=== PATIENT | male | born 1970 | race Native Hawaiian/Other Pacific Islander ===

== ENCOUNTER 2018-10-10 23:16 | Emergency (ER) | payer BC ==
[~2018-10-10] VITALS: Ht 177.8 cm; Wt 93.0 kg
[2018-10-10 23:36] VITALS: TEMP 98.7
[2018-10-11 00:30] LABS: PLATELET COUNT 226 K/uL (142-355)
[2018-10-11 00:35] LABS: POTASSIUM 3.5 mmol/L (3.6-5.2)
[2018-10-11 01:25] VITALS: BP 150/99
== END 2018-10-11 01:25 | disposition home or self-care (01) ==
LOC: ED 23:16
PROVIDERS: Internal Medicine
DX: I10 Essential (primary) hypertension (principal); E87.6 Hypokalemia
CPT/HCPCS: 36415; 80053; 81000; 85027; 93005; 99283

== ENCOUNTER 2022-04-03 14:46 | Outpatient (CLI) | payer BC | END 2022-04-03 20:02 | disposition home or self-care (01) | LOC: MRI 14:46 | PROVIDERS: ATTEND Orthopaedic Surgery | DX: M25.552 Pain in left hip (principal); M16.12 Unilateral primary osteoarthritis, left hip; M24.152 Other articular cartilage disorders, left hip ==

== ENCOUNTER 2022-06-15 19:15 | Emergency (ER) | payer BC ==
[~2022-06-15] VITALS: Ht 177.8 cm; Wt 97.5 kg
[2022-06-15 19:20] VITALS: TEMP 99.2
[2022-06-15 19:45] LABS: PLATELET COUNT 245 K/uL (142-355)
[2022-06-15 20:03] LABS: POTASSIUM 3.6 mmol/L (3.6-5.2)
[2022-06-15 22:52] VITALS: BP 143/92
== END 2022-06-15 22:50 | disposition short-term general hospital (02) ==
LOC: ED 19:15
PROVIDERS: Emergency Medicine Emergency Medical Services
DX: I26.99 Other pulmonary embolism without acute cor pulmonale (principal); Z98.890 Other specified postprocedural states; Z11.52 Encounter for screening for COVID-19
CPT/HCPCS: 36415; 80053; 84484; 85027; 85610; 85730; 87635; 93005; 94664; 96360; 96365; 96375; 99285; J1170; J1644; J1885; J2270; Q9963; U0003

== ENCOUNTER 2023-07-16 08:03 | Outpatient (CLI) | payer BC | END 2023-07-16 20:24 | disposition home or self-care (01) | LOC: LABW 08:03 | PROVIDERS: ATTEND Internal Medicine Pulmonary Disease | DX: Z86.711 Personal history of pulmonary embolism (principal) | CPT/HCPCS: 36415; 85379 ==